=== PATIENT | male | born 1965 | race Caucasian/White ===

== ENCOUNTER 2024-05-25 16:49 | Inpatient (IN) ==
[2024-05-25 17:35] LABS: Hematocrit 45.1 % (38-53); Hemoglobin 15.4 g/dL (13.2-16.3); Mean Corpuscular Hemoglobin 29.4 pg (27-33); Mean Corpuscular Hgb Conc 34.1 g/dL (31-36); Mean Corpuscular Volume 86.3 fL (80-97); Red Blood Count 5.22 10^6/uL (4.06-5.63); Red Cell Distribution Width 14.8 % (12-17); White Blood Count 9.5 10^3/uL (3.6-10.2)
[2024-05-25 17:37] LABS: INR 1.05 (0.83-1.13)
[2024-05-25 17:53] LABS: ABS Basophils 0.1 10^3/uL (0.0-0.1); ABS Eosinophils 0.1 10^3/uL (0.0-0.5); ABS Lymphocytes 1.8 10^3/uL (1.0-4.8); ABS Monocytes 0.8 10^3/uL (0.0-1.1); ABS Neutrophils 6.8 10^3/uL (1.5-7.6); ABS Nucleated RBC 0.01 10^3/ul; Eosinophil % 0.7 %; Large Platelets Present; Lymphocyte % 18.4 %; Mean Platelet Volume 11.8 fL (7.5-11.2); Nucleated Red Blood Cells % 0.1 %/100WBC (0.0-0.8); Platelet Count 146 10^3/uL (150-450)
[2024-05-25 18:02] LABS: Albumin 4.3 g/dL (3.2-5.2); Albumin/Globulin Ratio 1.5 (1-3); Calcium 9.8 mg/dL (8.6-10.3); Creatinine, Serum 1.18 mg/dL (0.67-1.17); Globulin 2.9 g/dL (2-4); Potassium 4.2 mmol/L (3.5-5.0); Total Bilirubin 0.4 mg/dL (0.2-1.0); Total Protein 7.2 g/dL (6.4-8.9); eGFR CKD-EPI 71.1 (>60)
[2024-05-25] MEDS: Aspirin EC 325 mg TAB.EC PO ONE (18:32)
[2024-05-25] MEDS: Labetalol IV 5 MG/ML 20 ml VIAL IV PUSH ONE (18:32)
[2024-05-25 18:41] LABS: High Sensitivity Troponin 1 Hr 858 pg/mL (<20)
[2024-05-25] MEDS: Heparin DRIP 25,000 UNITS BAG 25,000 UNITS/250 ML BAG IV SCH (19:38)
[2024-05-25] MEDS: Heparin 5000 UNITS/ML 1 mL VIAL IV SCH (19:43)
[2024-05-25] MEDS: Enalaprilat IV 1.25 mg/ml 2 ml VIAL (2.5 MG) IV ONE (19:48)
[2024-05-25 21:07] LABS: Creatinine, Serum 1.07 mg/dL (0.67-1.17); eGFR CKD-EPI 79.9 (>60)
[2024-05-25 21:19] LABS: High Sensitivity Troponin 3 Hr 2189 pg/mL (<20)
[2024-05-26 08:09] LABS: Hematocrit 43.7 % (38-53); Hemoglobin 14.9 g/dL (13.2-16.3); Mean Corpuscular Hemoglobin 29.4 pg (27-33); Mean Corpuscular Hgb Conc 34.1 g/dL (31-36); Mean Corpuscular Volume 86.4 fL (80-97); Red Blood Count 5.06 10^6/uL (4.06-5.63); Red Cell Distribution Width 14.4 % (12-17); White Blood Count 10.1 10^3/uL (3.6-10.2)
[2024-05-26 08:19] LABS: Calcium 9.1 mg/dL (8.6-10.3); Creatinine, Serum 0.79 mg/dL (0.67-1.17); Magnesium 1.8 mg/dL (1.9-2.7); Potassium 4.1 mmol/L (3.5-5.0); eGFR CKD-EPI 102.3 (>60)
[2024-05-26 08:35] LABS: ABS Basophils 0.1 10^3/uL (0.0-0.1); ABS Eosinophils 0.1 10^3/uL (0.0-0.5); ABS Lymphocytes 2.1 10^3/uL (1.0-4.8); ABS Monocytes 0.8 10^3/uL (0.0-1.1); ABS Nucleated RBC 0.02 10^3/ul; Eosinophil % 0.8 %; Large Platelets Present; Lymphocyte % 20.6 %; Nucleated Red Blood Cells % 0.1 %/100WBC (0.0-0.8); Platelet Count 120 10^3/uL (150-450)
[2024-05-26 09:54] LABS: High Sensitivity Troponin 1 Hr 5745 pg/mL (<20)
[2024-05-26] MEDS: Sulfur Hexaflouride MICROSPHR 25 MG VIAL IV ONE (10:00)
[2024-05-26] MEDS ORDERED: Heparin 1,000 UNIT/ML 10 ml (10,000 UNITS) CATHLAB/DIALYSIS ONE ×2 (12:22→13:28)
[2024-05-26] MEDS ORDERED: Midazolam 5 mg/5 ml VIAL 1 mg/ml 5 ml VIAL (5 mg) ONE (12:22)
[2024-05-26] MEDS ORDERED: fentaNYL 100 mcg/2 ml 50 MCG/ML VIAL ONE ×3 (12:22→13:40)
[2024-05-26] MEDS ORDERED: nitroGLYCERIN DRIP 25,000 MCG/250 ML BTL ONE (12:23)
[2024-05-26] MEDS ORDERED: Heparin 2 UNITS/ML 1000 mls 2,000 ML IV ONE (12:23)
[2024-05-26] MEDS ORDERED: Lidocaine 1% MPF 5 ML VIAL ONE (12:23)
[2024-05-26] MEDS ORDERED: niCARdipine 0.1MG/ML IVPREMIX 20 MG/200 ML BAG IV ONE (12:24)
[2024-05-26] MEDS ORDERED: Iohexol 350 (CONTRAST) 200 ML MDV IV ONE (12:24)
[2024-05-26] MEDS ORDERED: Sulfur Hexaflouride MICROSPHR 25 MG VIAL ONE (12:27)
[2024-05-26] MEDS ORDERED: Flumazenil 0.5 mg/5 ml 0.1 MG/ML 5 ml VIAL IV PRN (12:30)
[2024-05-26] MEDS ORDERED: Naloxone 0.4 mg VIAL 0.4 mg/ml 1 ml VIAL IV PUSH PRN (12:30)
[2024-05-26] MEDS ORDERED: Heparin 2 UNITS/ML 1000 mls 1,000 ML IV ONE (13:28)
[2024-05-26] MEDS ORDERED: Prasugrel 10 mg TAB (NF) ONE (13:28)
[2024-05-26] MEDS ORDERED: Eptifibatide IV (Load dose) 2 MG/ML 10 ml VIAL ONE ×2 (14:01→14:02)
[2024-05-26] MEDS ORDERED: Iohexol 350 (CONTRAST) 100 ML PAK IV ONE (14:19)
[2024-05-26 14:28] LABS: HDL Cholesterol 45.5 mg/dL
[2024-05-26] MEDS ORDERED: Ondansetron 4 mg VIAL 2 MG/ML 2 ml VIAL IV PRN (14:38)
[2024-05-26] MEDS: Calcium Carb (TUMS) 500 mg CHEW TAB PO PRN (15:39)
[2024-05-26] MEDS: fentaNYL 100 mcg/2 ml 50 MCG/ML VIAL IV SLOW PU ONE (16:57)
[2024-05-26] MEDS: Midazolam 10 mg/10 ml VIAL 1 mg/ml 10 ml VIAL (10 mg) IV SLOW PU ONE (16:58)
[2024-05-27 04:57] LABS: Hematocrit 43.9 % (38-53); Hemoglobin 14.8 g/dL (13.2-16.3); Mean Corpuscular Hemoglobin 29.1 pg (27-33); Mean Corpuscular Hgb Conc 33.8 g/dL (31-36); Mean Corpuscular Volume 86.2 fL (80-97); Red Blood Count 5.09 10^6/uL (4.06-5.63); Red Cell Distribution Width 14.3 % (12-17)
[2024-05-27 05:18] LABS: Albumin 3.9 g/dL (3.2-5.2); Albumin/Globulin Ratio 1.7 (1-3); Calcium 9.5 mg/dL (8.6-10.3); Creatinine, Serum 0.71 mg/dL (0.67-1.17); Globulin 2.3 g/dL (2-4); Total Bilirubin 0.8 mg/dL (0.2-1.0); Total Protein 6.2 g/dL (6.4-8.9); eGFR CKD-EPI 105.7 (>60)
[2024-05-27 07:32] LABS: ABS Basophils 0.1 10^3/uL (0.0-0.1); ABS Eosinophils 0.1 10^3/uL (0.0-0.5); ABS Lymphocytes 1.5 10^3/uL (1.0-4.8); ABS Monocytes 0.7 10^3/uL (0.0-1.1); ABS Neutrophils 8.5 10^3/uL (1.5-7.6); ABS Nucleated RBC 0.01 10^3/ul; Eosinophil % 1.1 %; Lymphocyte % 14.1 %; Mean Platelet Volume 11.6 fL (7.5-11.2); Nucleated Red Blood Cells % 0.1 %/100WBC (0.0-0.8); Platelet Count 126 10^3/uL (150-450)
[2024-05-27] MEDS: CMCS:Prasugrel 10 mg TAB (NF) PO SCH (08:01)
[2024-05-27 09:48] LABS: Magnesium 1.9 mg/dL (1.9-2.7)
[2024-05-28 06:53] LABS: Calcium 9.3 mg/dL (8.6-10.3); Creatinine, Serum 0.93 mg/dL (0.67-1.17); Phosphorus 3.6 mg/dL (2.5-5.0); Potassium 4.2 mmol/L (3.5-5.0); eGFR CKD-EPI 94.6 (>60)
[2024-05-28 07:16] LABS: ABS Eosinophils 0.1 10^3/uL (0.0-0.5); ABS Lymphocytes 1.8 10^3/uL (1.0-4.8); ABS Monocytes 0.9 10^3/uL (0.0-1.1); ABS Neutrophils 6.4 10^3/uL (1.5-7.6); Hematocrit 45.3 % (38-53); Hemoglobin 14.9 g/dL (13.2-16.3); Large Platelets Present; Lymphocyte % 19.9 %; Mean Corpuscular Hemoglobin 28.5 pg (27-33); Mean Corpuscular Hgb Conc 32.9 g/dL (31-36); Mean Corpuscular Volume 86.8 fL (80-97); Mean Platelet Volume 11.4 fL (7.5-11.2); Platelet Count 127 10^3/uL (150-450); Red Blood Count 5.22 10^6/uL (4.06-5.63); Red Cell Distribution Width 14.3 % (12-17); White Blood Count 9.2 10^3/uL (3.6-10.2)
[2024-05-28 09:39] VITALS: BP 114/87
== END 2024-05-28 14:48 | disposition home or self-care (01) | DRG 322 ==
LOC: ED 16:49 → EDHOLD 16:49 → SUATTDRO 20:43 → MEDTELE 21:45 → ICU 05-26 15:13 → MEDTELE 05-27 09:20
PROVIDERS: ADMIT Internal Medicine; ATTEND Student in an Organized Health Care Education/Training Program